=== PATIENT | female | born 2000 | race Caucasian/White ===

== ENCOUNTER 2020-01-01 11:25 | Outpatient (RCR) | payer OTHER, SELFPAY ==
[2020-01-01 12:20] VITALS: BP 113/75; PULSE 73
== END 2020-01-21 08:00 | disposition home or self-care (01) ==
LOC: ANHOBOP 11:25
PROVIDERS: PCP Obstetrics & Gynecology; Visit Provider Obstetrics & Gynecology
DX: O36.8130 Decreased fetal movements, third trimester, not applicable or unspecified (principal); Z3A.34 34 weeks gestation of pregnancy
CPT/HCPCS: 59025

== ENCOUNTER 2020-01-21 02:03 | Inpatient (IN) | payer OTHER, SELFPAY ==
[2020-01-21] VITALS (20 sets, daily range): BP systolic 129–167; BP diastolic 83–104; PULSE 55–78; RESP 16–20; TEMP 36.2–36.9; BMI 24.2
--- NOTE | 2020-01-21 02:03 | OBADM ---
This patient, Trell Terrazas, admitted to the OB room Labor/Delivery/Recovery 106 for observation. Patient/family oriented to hospital policies and general routines including ID bracelet, bed and alarms, visiting hours, pain management, procedures, bathroom and other care routines, personal items, smoking policy, room service/diet, and visiting hours. Patient/Family are encouraged to report perceived risks to care and to ask questions if they do not understand what they are told or what they should do.
--- NOTE | 2020-01-21 02:46 | WPDOBADMIT ---
Obstetrics - Admit Note Admission Note: record reviewed. No pertinent additions to the history and/or any subsequent changes in the physical findings that are not consistent with the expected course of the were found. Pt presents to LD with SROM clear fluid, sve by RN 6 cm, anticipate vaginal delivery Additions to the history and/or subsequent changes in the physical findings follow. None.
[2020-01-21 02:51] LABS: Basophils Absolute Auto 0.1 K/mm3 (0.0-0.1); Basophils Percent Auto 0.5 % (0.2-1.2); Eosinophils Absolute Auto 0.1 K/mm3 (0-0.3); Eosinophils Percent Auto 0.5 % (0-4.4); Hematocrit 37.6 % (37.0-47.0); Hemoglobin 12.3 g/dL (12.0-15.0); Immature Granulocyte Absolute 0.18 K/mm3 (0.00-0.031); Immature Granulocyte Percent A 1.5 % (0-0.5); Lymphocytes Absolute Auto 3.05 K/mm3 (0.9-3.2); Lymphocytes Percent Auto 25.5 % (18.3-44.2); Mean Corpuscular HGB Conc 32.7 g/dl (32-36); Mean Corpuscular Hemoglobin 28.7 pg (26-34); Mean Corpuscular Volume 87.9 fl (80-100); Mean Platelet Volume 12.4 fl (7.4-10.4); Monocytes Absolute Auto 1.1 K/mm3 (0.1-0.6); Monocytes Percent Auto 9.5 % (2.6-8.5); Neutrophils Absolute Auto 7.5 K/mm3 (1.3-6.7); Neutrophils Percent Auto 62.5 % (45.5-73.1); Platelet Count Result 206 k/mm3 (150-375); Red Blood Count 4.28 M/mm3 (4.2-5.4); Red Cell Distribution Width 13.4 % (11.5-14.5); White Blood Count 11.9 K/mm3 (4.5-10.0)
[2020-01-21] MEDS: fentaNYL CITRATE INJ (*CRX) 100 MCG/2 ML VIAL IV PUSH (03:48)
[2020-01-21] MEDS: LACTATED RINGERS 1,000 ML 125 ML IV CONT (03:48)
[2020-01-21] MEDS: OXYTOCIN 30 UNITS/NS 500 ML 30 UNITS/500 ML BAG 999 UNITS IV CONT (03:52)
--- NOTE | 2020-01-21 03:59 | P.PCNOB_ITS ---
OB - Delivery Note Procedure Delivery date: 01/21/20 Procedure: vaginal delivery events: Labor < 37 Weeks Intrapartal events: None Induction method: none Delivery augmentation: rupture of membranes Delivery monitor: external FHT and external uterine Route of delivery: Laceration Description: None Specimen: Yes Estimated blood loss (mL): 250 Anesthesia type: None Complications: pt declined antibiotics for positive GBS [place] Baby Date of : 01/21/20 Time of : 03:34 Weeks of gestation at delivery: 36 gender: Female Weight (pounds): 5 Weight (ounces): 15 presentation: vertex position: Right Occiput Anterior Placenta delivery description: Manual Removal and Abnormal Configuration cord vessel description: 3 Vessels and Clamped/Cut score one minute: 9 score five minutes: 9 Narrative: manual removal of placenta, mom and baby in stable condition
[2020-01-21] MEDS: ceFAZolin 2 GM/D5W 50 ML 2 GM/50 ML BAG IVPB (04:18)
[2020-01-21] MEDS: OXYTOCIN 30 UNITS/NS 500 ML 30 UNITS/500 ML BAG 125 UNITS IV CONT (04:22)
[2020-01-21] MEDS: WITCH HAZEL 40 PADS 1 PAD TOPICAL (05:46)
[2020-01-21] MEDS: BENZOCAINE 20% AER SPR (*SP) 56 GM CAN 1 SPRAY TOPICAL (05:46)
[2020-01-21] MEDS: IBUPROFEN 600 MG TABLET PO ×3 (05:49→20:20)
--- NOTE | 2020-01-21 06:20 | PC.NURSE ---
Patient transferred to post room # 291 per wheelchair. Support person present. Oriented to unit, room, information board, rooming in, admission packet and security measures. Patient verbalizes understanding.
[2020-01-21] MEDS: DOCUSATE SODIUM 100 MG CAPSULE PO ×2 (08:37→15:24)
[2020-01-21 09:00] LABS: Rapid Plasma Reagin Non-Reactive (NonReactive)
[2020-01-22] MEDS: IBUPROFEN 600 MG TABLET PO ×2 (03:25→13:47)
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
[2020-01-22] MEDS: DOCUSATE SODIUM 100 MG CAPSULE PO (08:45)
[2020-01-22] MEDS: ACETAMINOPHEN 325 MG TABLET 650 MG PO ×2 (08:45→14:48)
--- NOTE | 2020-01-22 13:41 | PM.OBPNVD ---
OB - PN: Subj Subjective Date/time seen: 01/22/20 13:41 PPD1 Doing well, minimal pain. Normal lochia. Bottlefeeding. Denies depression. Eating, ambulating, voiding. OB - PN: Obj Data Labs CBC & Chem 7: 01/21/20 02:40 OB - PN A/P Plan day: 1 Plan: routine care Time Spent With Patient Time: Total time spent is greater than 50% in coordination of care (as documented) at patient's floor/unit and/or counseling patient: Time with patient: less than 15 minutes Exam Narrative: Exam Narrative: NAD abdomen soft, nontender, fundus firm below the umbilicus Extremities nontender, 1+ edema
--- NOTE | 2020-01-22 13:49 | PM.OBDSVD ---
DS: Admitting Diagnosis Admitting Diagnosis Admitting Diagnosis: SROM DS: Discharge Diagnosis Discharge Diagnosis (1) Term delivered: Code(s): O80 - Encounter for full-term uncomplicated delivery Status: Acute OB - DS: Summary OB Procedures : None OB Procedures Intrapartum: Spontaneous Vag Delivery OB Procedures: : None Time Spent with Patient Time attestation: Total time spent providing and/or coordinating discharge services: 15 min Exam Narrative: Exam Narrative: NAD abdomen soft, appropriately tender Ext non tender, 1+ edema DS: Data Data Completed and Pending Pending studies at discharge: Pending at discharge 01/21/20 06:08 Surgical [PTH] Routine Discharge Plan Discharge Attending physician on discharge: Anne-Marie Stauffer Discharging Clinician: Anne-Marie Stauffer Anticipated Discharge Date/Time: 01/23/20 13:45 Patient Disposition: Home, Self-Care Activity: may shower and pelvic rest Diet: as tolerated Discharge Instructions: Pelvic rest for 6 weeks. Follow up 4 weeks. Patient Instructions: Antibiotic Form Stand Alone Forms: General Discharge Information Follow-up/Referrals: Anne-Marie Stauffer MD [Physician] - (4 weeks) Discharge Medications: New ibuprofen 600 mg Tablet 600 mg PO Q6H PRN (Reason: Cramping) Qty: 60 RF: 0 Continued #2 Tablet 1 tablet PO DAILY RF: 0 Date of admission: 01/21/20 02:03 Primary Care Provider: Pallavi Alamo Admitting Provider: Atul Oh Attending physician on admission: Atul Oh Condition: Stable
[2020-01-22 18:54] VITALS: BP 141/96; PULSE 93; RESP 16; TEMP 36.7
[2020-01-22] MEDS: ZOLPIDEM TARTRATE (*CRX) 5 MG TABLET PO (21:10)
[2020-01-23] MEDS: IBUPROFEN 600 MG TABLET PO (03:37)
[2020-01-23 08:00] VITALS: BP 135/88; PULSE 91; RESP 14; TEMP 36.7; O2SAT 97
[2020-01-23] MEDS: ACETAMINOPHEN 325 MG TABLET 650 MG PO (08:13)
[2020-01-23] MEDS: DOCUSATE SODIUM 100 MG CAPSULE PO (08:13)
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
[2020-01-23 12:15] VITALS: PULSE 91; RESP 16; O2SAT 97
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
--- NOTE | 2020-01-24 10:15 | PCCCNOTE ---
Care Coordination. Received a call from Brooklynn Jarrett, [facility] rent and housing investigator, who reports she will be following up with and mother today at her home.
[2020-01-24 12:00] VITALS: BP 132/85; PULSE 91; RESP 20; TEMP 36.9; O2SAT 96
== END 2020-01-23 12:35 | disposition home or self-care (01) | DRG 560 ==
LOC: ANHLDR 02:26 → ANHOB2 06:28
PROVIDERS: Advanced Practice Midwife; Admitting Provider Obstetrics & Gynecology; PCP Obstetrics & Gynecology; Visit Provider Obstetrics & Gynecology
DX: O60.14X0 Preterm labor third trimester with preterm delivery third trimester, not applicable or unspecified (principal); O99.824 Streptococcus B carrier state complicating childbirth; O62.3 Precipitate labor; Z3A.36 36 weeks gestation of pregnancy; Z37.0 Single live birth
CPT/HCPCS: 36415; 85025; 86592; 86850; 86900; 86901; 88307; A9270; J0690; J2590; J3010; J7120

== ENCOUNTER 2020-02-02 10:36 | Emergency (ER) | payer OTHER, SELFPAY ==
[2020-02-02 10:59] VITALS: BP 138/91; PULSE 97; RESP 18; TEMP 37.2; O2SAT 98
[2020-02-02 11:01] VITALS: BP 138/91; PULSE 97; RESP 18; TEMP 37.2; O2SAT 98
--- NOTE | 2020-02-02 11:17 | ED.GENADULT ---
HPI - General Adult General Chief complaint: Head Injury Stated complaint: possible concussion Time Seen by Provider: 02/02/20 10:55 Source: patient and RN notes reviewed Mode of arrival: ambulatory Limitations: no limitations History of Present Illness HPI narrative: Patient presents today complaining of left sided headache, dizziness, photophobia, phonophobia, intermittent difficulty focusing. Nausea present only upon waking in the AM, but improves quickly through the morning. 2 days ago, patient had a syncopal episode at home, and fell onto her left side, striking her left head and shoulder on a tile floor at home. The fall was witnessed at home by her boyfriend and states she only lost consciousness for 2 seconds . Prior to losing consciousness, patient was very anxious as she was worrying about a bruise on her arm from a previously placed IV. Reports hx of anxiety related to blood and IVs. Patient is 10 days . Rates her headache 2-5/10 and has been taking tylenol with relief. She is pumping and saving her milk to give her baby later as she is currently on high calorie formula. She has been in contact with her OB, Dr. Carrillo, who instructed her to come to Urgent Care for evaluation today. Patient states her symptoms have been improving today and states she has plenty of help at home with her new baby. Related Data Home Medications Medication Instructions Recorded Confirmed No Home Medications 02/02/20 02/02/20 Allergies Allergy/AdvReac Type Severity Reaction Status Date / Time No Known Allergies Allergy Verified 02/02/20 11:01 Review of Systems Review of Systems: Narrative: CONSTITUTIONAL: Denies body aches, fever, chills, or sweats. EYES: Denies redness, or discharge. +photophobia, intermittent difficulty focusing ENT: Denies rhinorrhea, congestion, sore throat, or otalgia. +phonophobia CARDIOVASCULAR: Denies chest pain, palpitations, or edema. RESPIRATORY: Denies cough or dyspnea. GASTROINTESTINAL: Denies abdominal pain, nausea, vomiting, or diarrhea. GENITOURINARY: Denies dysuria or hematuria. SKIN: Denies rash, itching, or wounds. MUSCULOSKELETAL: Denies back pain, joint pain, or myalgia. NEUROLOGIC: Denies numbness, tingling, or weakness. +headache, dizzness, hx of syncopal epidsode, difficulty concentrating PSYCH: Denies depression. +anxiety PMFSH Past Medical History Medical History (Updated 02/02/20 @ 12:41 by Jessica Tidwell, [facility], ) Anxiety Term delivered Family History Family History (Updated 01/11/20 @ 15:27 by Velia Alexander RN) Father FH: kidney cancer Grandparent History of thyroidectomy Son Absent kidney, congenital Social History Social History Smoking packs per day: 0.5 Smoking cigarettes per day: 10.0 Years smoked: 1 Smoking pack-years: 0.50 Smoking status: Former smoker Substance use: never Spiritual care concerns: No Exam Narrative: Exam Narrative: GENERAL: Well-appearing, well-nourished. Sitting with patterson covering her eyes. HEAD: Normocephalic, atraumatic. EYES: EOMI. PERRL. No redness or drainage. Conjunctivae normal. ENT: Mucous membranes pink and moist. Nares clear. No rhinorrhea. TMs normal bilaterally. NECK: Normal AROM. Supple. No lymphadenopathy. Nontender. CHEST: No respiratory distress. Clear to auscultation. HEART: Regular rate and rhythm. No murmur appreciated. Normal peripheral pulses. MUSCULOSKELETAL:Soft tissue tenderness to left lutheran area with scant localized edema. EXTREMITIES: Normal range of motion. No edema. SKIN: Warm, dry, no rash. Capillary refill normal. Normal skin turgor. NEURO: No focal deficits. Alert and oriented x3. Gait steady. PSYCH: Normal affect. No signs of depression or anxiety. Course Course Emergency Course: Anticipatory guidance given for postconcussive syndrome and cognitive rest. Instructed patient to take NSAIDs for headache pain, as tylenol is providing some mild pain
== END 2020-02-02 11:25 | disposition home or self-care (01) ==
PROVIDERS: Emergency Provider Nurse Practitioner
DX: F07.81 Postconcussional syndrome (principal); Z87.891 Personal history of nicotine dependence
CPT/HCPCS: 99213; G0463

== ENCOUNTER 2020-07-04 09:00 | Outpatient (RCR) | payer OTHER, SELFPAY ==
--- NOTE | 2020-05-11 09:51 | PTOPEVAL ---
INITIAL PHYSICAL THERAPY EVALUATION and PLAN OF CARE Thank you for referring Trell Terrazas to [facility].? Trell is scheduled to be seen for physical therapy? 1x/week for 6 weeks. Please review, sign, date and return this plan of care SERGIO. I agree with and certify that the following plan of care is medically necessary. Referring Physician Date Admitting Provider: Attending Provider: Elizabeth Carrillo CNM Referring Provider: TAZ Outpatient Evaluation Start: 05/11/20 08:35 Freq: Status: Active Protocol: Document 05/11/20 08:35 CITLALY (Rec: 05/11/20 09:50 CITLALY [id number]) Therapy Assessment Status Assessment Status Assessment Status Evaluation Outpatient Past Medical History Past Medical History Source of Past Medical History Recalled from Previous Visit, Confirmed with Patient/Family Neurological History Hx Neurological Disorders No Significant History Cardiovascular History Hx Cardiac Disorders No Significant History Respiratory History Hx Asthma Yes: SEASONAL CHILD Gastrointestinal History Hx Gastrointestinal Disorders No Significant History Genitourinary History Hx Urinary Tract Infection Yes Musculoskeletal History Hx Musculoskeletal Disorders No Significant History Hematological History Hx Hematological Disorders No Significant History Endocrine History Hx Endocrine Disorders No Significant History HEENT History Hx Eye Surgery Yes: STI REMOVED AT AGE 3 Integumentary History Hx Skin Disorders No Significant History Reproductive History Hx Other Reproductive Disorders Yes: H/O OVARIAN CYST Psychosocial History Hx Psychiatric Disorders No Significant History Pain History History of Any Previous or Ongoing No Significant History Instance of Pain Anesthesia History Hx Anesthesia Reactions No Significant History Evaluation Information Problem Diagnosis pelvic and perineal pain Onset July 2018, worsened January 2020 Subjective Information First child - 7# 15oz - pelvic Query Text:As Reported By Patient/ outlet was small - so she was Family told - pain developed in lower abdominal region - centrally. Also discomfort in genital region. Sitting can be difficult - difficulty sitting in car. 2nd child - came a little early 5# 13 oz - no difficulty with labor and delivery 2 weeks after this - became dizzy - fell straight down - hit head hard
--- NOTE | 2020-06-22 10:42 | PTOPEVAL ---
PHYSICAL THERAPY RE-EVALUATION and UPDATED PLAN OF CARE Thank you for referring Trell Terrazas to [facility].? Trell has been seen x 7 visits. Increased gains have been made with pelvic/sacral/SIJ alignment and mobility, but introitus and R sided levator ani/pubic pain remain. She is being scheduled to continue with PT 1x/week for 4 weeks. Please review, sign, date and return this plan of care SERGIO. I agree with and certify that the following plan of care is medically necessary. Referring Physician Date Admitting Provider: Attending Provider: Elizabeth Carrillo CNM Referring Provider: Therapy Assessment Status Assessment Status Assessment Status Re-evaluation Evaluation Information Problem Diagnosis pelvic and perineal pain Subjective Information Trell reports that she is Query Text:As Reported By Patient/ still having anterior vaginal Family pain that will just happen. She can be sitting on the couch watching TV with children and experienced it as well as with different activities throughout the day. Sitting has improved and no discomfort with lifting children now. Hasn't had intercourse in awhile -but last time discomfort was present midway and continued until the end. Didn't have insertional or initial penetration pain. Pain Assessment Self Report Pain Assessment Pelvis Reported Pain Level 0 Lowest Pain Intensity 0 Greatest Pain Intensity 6 Cervical and Lumbar ROM Lumbar ROM Lumbar ROM WNL Normal Lumbar Segmental Motion Yes Lumbar Comments Negative standing flexion test Palpation Assessment Palpation Palpation Pelvis/sacrum level in standing - symmetrical SIJ motion present. Some decrease with R to L lateral glide L5/S1 Tenderness present at pubic bones - mainly R side, increased tenderness along R inguinal ligament, R ilium region - medial soft tissue structures Pelvic Health Evaluation Pelvic Floor Assessment Permission Received for External/ Yes Internal Perineal Exam Internal Perineal Body Palpation mild tenderness at introitus, no tissue tension/tenderness 1
--- NOTE | 2020-07-18 08:09 | PCPTNOTE ---
Patient called & cancelled scheduled appointment this date due to illness. She also cancelled last week due to illness. Today's visit was her re-eval visit - will await to see if she reschedules this visit.
--- NOTE | 2020-08-01 15:20 | PCPTNOTE ---
PHYSICAL THERAPY DISCHARGE SUMMARY Admitting Provider: Attending Provider: Elizabeth Carrillo CNM Patient:Trell Terrazas Date of :2000 Trell has not returned for any further treatments since 07/04/2020, therefore she will be discharged at this time. Trell?s initial visit was on 05/11/2020 08:30 and she had a total of 9 visits. She cancelled her last 2 visits, the last being her re-evaluation. She did call to reschedule this visit. The goals have been partially met. Unable to perform re-assessment. Thank you for referring Trell to [facility]. Please review, sign, date and return this discharge summary SERGIO. I have been updated about Trell's current status and I agree with discharge from the above service at this time. Referring Physician Date
== END 2020-08-02 11:02 | disposition home or self-care (01) ==
LOC: ANHPT 09:00
PROVIDERS: PCP Advanced Practice Midwife; Visit Provider Advanced Practice Midwife
DX: R10.2 Pelvic and perineal pain (principal)
CPT/HCPCS: 97110; 97140; 97161

== ENCOUNTER 2021-12-03 10:37 | Emergency (ER) | payer OTHER, SELFPAY ==
[2021-12-03 11:00] VITALS: BP 114/70; PULSE 70; RESP 18; TEMP 37.1; O2SAT 100
--- NOTE | 2021-12-03 11:44 | ED.URI ---
HPI - URI/Sore Throat General Chief Complaint: Upper Respiratory Infection Stated Complaint: inflamation on right side of back throat Time Seen by Provider: 12/03/21 11:05 Source: patient, RN notes reviewed and old records reviewed Mode of arrival: ambulatory Limitations: no limitations History of Present Illness HPI Narrative: 21 year old female who presents to [facility] care with complaints of sore throat only on the right side of her throat which started last night.. Patient states that she awoke with sore throat,swelling to right tonsil with painful swallowing and some tenderness to the right side of her neck.Patient denies any known fevers, chills or sweats or any body aches.Patient denies any difficulty with her breathing or any inability to swallow, no trismus noted. MD elicited complaint: sore throat and other (right tonsil swelling with exudate) Onset (ago): day(s) (1 started last night) Pain scale (0-10): 8 Able to tolerate fluids by mouth: Yes Treatments prior to arrival: acetaminophen and ibuprofen Related Data Allergies Allergy/AdvReac Type Severity Reaction Status Date / Time No Known Allergies Allergy Verified 12/03/21 12:21 Review of Systems Review of Systems: CONSTITUTIONAL: Denies fever, chills, or sweats. EYES: Denies visual changes, redness, or discharge. ENT: Denies rhinorrhea, congestion, positive for right sided sore throat, or otalgia. CARDIOVASCULAR: Denies chest pain, palpitations, or edema. RESPIRATORY: Denies cough or dyspnea. GASTROINTESTINAL: Denies abdominal pain, nausea, vomiting, or diarrhea. GENITOURINARY: Denies dysuria or hematuria. SKIN: Denies rash or itching. MUSCULOSKELETAL: Denies back pain, joint pain, or myalgia. NEUROLOGIC: Denies headache, numbness, or weakness. PSYCHIATRIC: Positive history of anxiety or depression. All systems reviewed & are unremarkable except as noted in HPI and below [facility] Past Medical History Medical History (Updated 12/04/21 @ 00:01 by Clarisse Giron) Anxiety Term delivered Surgical History Surgical History (Updated 12/04/21 @ 14:37 by Diana Terrell NP) H/O removal of cyst from eye Family History Family History (Updated 01/11/20 @ 15:27 by Velia Alexander RN) Father FH: kidney cancer Grandparent History of thyroidectomy Son Absent kidney, congenital Social History Social History Smoking packs per day: 0.5 Smoking cigarettes per day: 10.0 Years smoked: 1 Smoking pack-years: 0.50 Smoking status: Former smoker Substance use: never Spiritual care concerns: No Comments At time of signature agree with nursing documentation of past medical surgical, socia, and family history. There is no relevant family history pertinent to presenting complaint. Exam Narrative: GENERAL: Well-appearing, well-nourished, and in no acute distress. HEAD: Normocephalic, atraumatic. EYES: PERRLA and EOMI. ENT: Nares clear, no rhinorrhea or epistaxis. Mucous membranes moist.TM's normal with good light reflex, throat red with right tonsil enlarged red with white exudates with painful swallowing. NECK: Supple.right lymphadenopathy CHEST: Clear to auscultation. No respiratory distress.no cough noted SAO2 100% on room air HEART: Regular rate and rhythm. No murmur heard. Normal peripheral pulses. ABDOMEN: Soft, nontender, nondistended, normal active bowel sounds. EXTREMITIES: Normal range of motion. No edema. SKIN: Warm, dry, no rash. NEURO: No focal deficits. Alert and oriented x3. Course Course Level of Care: Express Care Visit Vital Signs Vital signs: Vital Signs Temperature 37.1 C 12/03/21 11:00 Pulse Rate 70 12/03/21 11:00 Respiratory Rate 18 12/03/21 11:00 Blood Pressure 114/70 12/03/21 11:00 Pulse Oximetry 100 12/03/21 11:00 Temperature 37.1 C 12/03/21 11:00 Pulse Rate 70 12/03/21 11:00 Respiratory Rate 18 12/03/21 11:00 Blood Pressure 114/70 12/03/21 11:00 Pulse Oximetry 100 12/03
== END 2021-12-03 12:00 | disposition home or self-care (01) ==
PROVIDERS: Emergency Provider Registered Nurse
DX: J03.90 Acute tonsillitis, unspecified (principal); Z87.891 Personal history of nicotine dependence
CPT/HCPCS: 87081; 87880; 99213; G0463

== ENCOUNTER 2022-03-11 19:46 | Emergency (ER) | payer OTHER, SELFPAY ==
--- NOTE | ~2022-03-11 | XR_ITS ---
EXAM: XR hip LT 2V w AP pelvis DATE: 03/11/2022 21:20 HISTORY: pain after fall TODAY, LT HIP PAIN WITH MOVEMENTS . COMPARISON: None available. FINDINGS: Normal mineralization. No fracture or dislocation. Large bone island in the right proximal femur. Joint spaces are maintained. No erosion or periosteal change. Soft tissues within normal limi ts. IMPRESSION: No acute osseous finding in the pelvis or left hip. Reviewed, dictated and finalized at location K. SERVICE COUNTER CLERK
--- NOTE | ~2022-03-11 | CT_ITS ---
Non-contrast CT scan of the Pelvis Clinical indication: Status post fall, groin pain Technique: 2.5 mm axial scans were obtained through the pelvis without intravenous or oral contrast. Dose reduction technique was used on this scan by utilizing automated exposure control and iterative reconstruction technique. The dose-length product (DLP) was 135.41 mGy-cm. Findings: Visualized bowel loops are unremarkable. No ascites. Urinary bladder unremarkable. No adnex al mass seen. No fracture or dislocation seen. Bilateral hip and SI joints are unremarkable. No joint effusion iden tified. Impression: No fracture or dislocation. Reviewed, dictated and finalized at location . AL CONTROL SPECIALIST Impression: No fracture or dislocation.
--- NOTE | ~2022-03-11 | XR_ITS ---
EXAM: XR lumbar spine 2-3V DATE: 03/11/2022 21:20 HISTORY: fall with left hip pain, PAIN DOWN LT LEG, FALL TODAY . COMPARISON: None available. FINDINGS: Mild lumbar scoliosis. 5 nonrib-bearing lumbar-type vertebral bodies. Pedicles intact. Norm al vertebral body alignment. Vertebral body heights preserved. Disc spaces maintained. Normal facets and posterior elements. No fracture or dislocation. IMPRESSION: No acute fracture or traumatic malalignment in the lumbar spine. Reviewed, dictated and finalized at location K. ICATING MACHINE TENDER
[2022-03-11 19:52] VITALS: BP 124/77; PULSE 100; RESP 16; TEMP 36.6; O2SAT 100
--- NOTE | 2022-03-11 22:05 | ED.FALL ---
HPI - Fall General Chief Complaint: Fall Stated Complaint: left hip pain, after fall Time Seen by Provider: 03/11/22 21:11 Source: patient Mode of arrival: ambulatory Limitations: no limitations History of Present Illness HPI Narrative: Patient is a 22-year-old female who presents to the ED with report of a fall. Patient reports she fell off of the chair earlier this morning and landed directly on her left hip. She did not hit her head or lose consciousness. She complains of pain to her left lower back, left hip, left groin, worse with ambulating. She took ibuprofen prior to arrival without relief. Patient was able to ambulate in the ED, but with a limp. No bowel or bladder incontinence, numbness, abdominal pain, nausea, vomiting. Related Data Allergies Allergy/AdvReac Type Severity Reaction Status Date / Time No Known Allergies Allergy Verified 03/11/22 19:56 Review of Systems Review of Systems: CONSTITUTIONAL: Denies fever, chills, or sweats. CARDIOVASCULAR: Denies chest pain. RESPIRATORY: Denies dyspnea. GASTROINTESTINAL: See HPI. GENITOURINARY: Denies incontinence, dysuria or hematuria. MUSCULOSKELETAL: See HPI. NEUROLOGIC: Denies numbness, or weakness. All systems reviewed & are unremarkable except as noted in HPI and below PMFSH Past Medical History Medical History Anxiety Term delivered Surgical History Surgical History H/O removal of cyst from eye Family History Family History (Updated 01/11/20 @ 15:27 by Velia Aleaxnder RN) Father FH: kidney cancer Grandparent History of thyroidectomy Son Absent kidney, congenital Social History Social History Smoking packs per day: 0.5 Smoking cigarettes per day: 10.0 Years smoked: 1 Smoking pack-years: 0.50 Smoking status: Former smoker Substance use: never Spiritual care concerns: No Exam Narrative: GENERAL: Well appearing, well-nourished, non-toxic, in no acute distress. HEAD: Normocephalic, atraumatic. NECK: Supple. No adenopathy, no masses. RESPIRATORY: Airway patent, respirations nonlabored. Clear to auscultation bilaterally, no rales, rhonchi, wheezing. CARDIOVASCULAR: Regular rate and rhythm without murmurs, rubs, or gallops. Pedal pulses 2+ and equal bilaterally. ABDOMINAL: Soft, nontender, nondistended, no hepatosplenomegaly. Normoactive BS. MUSCULOSKELETAL: Moves all extremities. Strength/ROM intact without gross deformities. Tenderness to palpation over lateral and anterior left hip joint. Mild tenderness to palpation in left lumbosacral region. No midline lumbar spinal tenderness. Patient reporting discomfort in left groin/inguinal region with flexion and abduction of left hip. SKIN: Warm, dry, normal color. No rashes. NEURO: A&O X3. Speech clear. Cranial nerves II-XII grossly intact. Antalgic gait. No ataxic movements. PSYCHIATRIC: Appropriate mood and affect. Normal interaction. Course Vital Signs Vital signs: Vital Signs Temperature 97.9 F 03/11/22 19:52 Pulse Rate 100 03/11/22 19:52 Respiratory Rate 16 03/11/22 19:52 Blood Pressure 124/77 03/11/22 19:52 Pulse Oximetry 100 03/11/22 19:52 Oxygen Delivery Room Air 03/11/22 19:52 Temperature 97.9 F 03/11/22 19:52 Pulse Rate 86 03/12/22 01:08 Respiratory Rate 16 03/12/22 01:08 Blood Pressure 124/61 03/12/22 01:08 Pulse Oximetry 98 03/12/22 01:08 Oxygen Delivery Room Air 03/11/22 19:52 MDM - Fall MDM Narrative Medical decision making narrative: Patient presented to ED status post ground-level fall this morning, complaining of left hip/groin/low back pain. Vital stable upon arrival. Patient neurologically intact. No red flag symptoms. X-rays of left hip/pelvis, lumbar spine without acute osseous abnormality. On exam, patien
--- NOTE | 2022-03-11 22:35 | PC.NURSE ---
patient refused IM injection for pain
[2022-03-12 01:08] VITALS: BP 124/61; PULSE 86; RESP 16; O2SAT 98
[2022-03-12] MEDS: IBUPROFEN 600 MG TABLET PO (01:16)
== END 2022-03-12 01:31 | disposition left against medical advice (07) ==
LOC: ANHED 21:23
PROVIDERS: Emergency Provider Physician Assistant; PCP Advanced Practice Midwife
DX: M25.552 Pain in left hip (principal); W07.XXXA Fall from chair, initial encounter; Z87.891 Personal history of nicotine dependence
CPT/HCPCS: 72100; 72192; 73502; 81025; 99284; A9270